=== PATIENT | male | born 1980 | race American Indian/Alaskan Native ===

== ENCOUNTER 2016-08-11 08:39 | Emergency (ER) | payer OTHER ==
[2016-08-11 08:44] VITALS: BP 128/85; PULSE 78; TEMP 97.6; BMI 23.7
[2016-08-11] MEDS ORDERED: IBUPROFEN 600 MG TABLET (FP) PO ONE ×2 (08:58→09:06)
--- NOTE | 2016-08-11 08:58 | PDOC ---
History of Present Illness <Jacqueline Jackson - Last Filed: 08/11/16 09:25> - General History Source: Patient Exam Limitations: No Limitations - History of Present Illness Initial Comments: 08/11/16 09:20 The patient is a 36 year old male, with a significant past medical history of kidney stones, who presents to the emergency department complaining of pain to his penile tip for approximately 5 days. The patient reports he engaged in sexual intercourse prior to the onset of his pain. He states the pain then came out of nowhere. The patient denies any history of STDs or a partner with a history of STDs. He describes the pain as achy in nature. The patient reports associated dysuria, but denies any discharge, testicular pain, back pain , frequency, urgency, or hematuria. The patient reports this pain is different from when hes had kidney stones in the past. The patient reports associated nausea, but denies vomiting, diarrhea, or constipation. The patient denies any fever, chills, cough, headache, or dizziness. The patient denies any recent travel or sick contacts. Allergies: Venom-honey bee, NKDA Past Surgical History: None reported. Family History: Kidney stones Social History: Non-smoker. Denies alcohol or drug use. PCP: Dr. Haines <Enedina Rivera - Last Filed: 08/11/16 09:31> - General Chief Complaint: Pain Stated Complaint: ABD PAIN Time Seen by Provider: 08/11/16 08:53 Past History - Past Medical History Other medical history: NONE - Psycho/Social/Smoking Cessation Hx Anxiety: No Suicidal Ideation: Yes Smoking History: Never smoked Have you smoked in the past 12 months: Yes Information on smoking cessation initiated: No Hx Alcohol Use: No Drug/Substance Use Hx: No Substance Use Type: None <Jacqueline Jackson - Last Filed: 08/11/16 09:25> <Enedina Rivera - Last Filed: 08/11/16 09:31> - Past Medical History Allergies/Adverse Reactions: Allergies Allergy/AdvReac Type Severity Reaction Status Date / Time venom-honey bee Allergy Verified 08/11/16 08:40 [bee venom (honey bee)] Home Medications: Ambulatory Orders NK [No Known Home Medication] 08/11/16 Review of Systems - Review of Systems Able to Perform ROS?: Yes Comments:: 08/11/16 09:21 GENERAL/CONSTITUTIONAL: No fever or chills. No weakness. HEAD, EYES, EARS, NOSE AND THROAT: No change in vision. No ear pain or discharge. No sore throat. CARDIOVASCULAR: No chest pain or shortness of breath. RESPIRATORY: No cough, wheezing, or hemoptysis. GASTROINTESTINAL: No nausea, vomiting, diarrhea or constipation. GENITOURINARY: +Penile tip pain, +dysuria. No frequency, or change in urination. MUSCULOSKELETAL: No joint or muscle swelling or pain. No neck or back pain. SKIN: No rash NEUROLOGIC: No headache, vertigo, loss of consciousness, or change in strength/ sensation. ENDOCRINE: No increased thirst. No abnormal weight change. HEMATOLOGIC/LYMPHATIC: No anemia, easy bleeding, or history of blood clots. ALLERGIC/IMMUNOLOGIC: No hives or skin allergy. <Enedina Rivera - Last Filed: 08/11/16 09:31> *Physical Exam - Vital Signs Last Vital Signs Temp Pulse Resp BP Pulse Ox 97.6 F 78 18 128/85 100 08/11/16 08:41 08/11/16 08:41 08/11/16 08:41 08/11/16 08:41 08/11/16 08:41 <Jacqueline Jackson - Last Filed: 08/11/16 09:25> - Vital Signs Last Vital Signs Temp Pulse Resp BP Pulse Ox 97.6 F 78 18 128/85 100 08/11/16 08:41 08/11/16 08:41 08/11/16 08:41 08/11/16 08:41 08/11/16 08:41 - Physical Exam Comments: 08/11/16 09:21 GENERAL: Awake, alert, and fully oriented, in no acute distress HEAD: No signs of trauma EYES: PERRLA, EOMI, sclera anicteric, conjunctiva clear ENT: Auricles normal inspection, hearing grossly normal, nares patent, oropharynx clear without exudates. Moist mucosa NECK: Normal ROM, supple, no lymphadenopathy, JVD, or masses LUNGS: Breath sounds equal, clear to auscultation bilaterally. No wheezes, and no crackles HEART: Regular rate and rhythm, normal S1 and S2, no murmurs, rubs or gallops ABDOMEN: Soft, nontender, normoactive bowel sounds. No guarding, no rebound. No masses EXTREMITIES: Normal range of motion, no edema. No clubbing or cyanosis. No cords, erythema, or tenderness NEUROLOGICAL: Cranial nerves II through XII grossly intact. Normal speech, normal gait SKIN: Warm, Dry, normal turgor, no rashes or lesions noted. <Enedina Rivera - Last Filed: 08/11/16 09:31> ED Treatment Course - ADDITIONAL ORDERS Additional order review: Laboratory Results 08/11/16 08:55 Urine Color Ltyellow Urine Appearance Clear Urine pH 5.0 Ur Specific [place] 1.024 Urine Protein Negative Urine Glucose (UA) Negative Urine Ketones Negative Urine Blood Negative Urine Nitrite Negative Urine Bilirubin Negative Urine Urobilinogen Negative Ur Leukocyte Esterase Negative - Medications Given in the ED: ED Medications Discontinued Medications Generic Name Dose Route Start Last Admin Trade Name Freq PRN Reason Stop Dose Admin Ibuprofen 600 mg 08/11/16 08:58 08/11/16 09:07 Motrin - PO 08/11/16 08:59 600 mg ONCE ONE Administration <Enedina Rivera - Last Filed: 08/11/16 09:31> *DC/Admit/Observation/Transfer - Discharge Dispostion Admit: No <Jacqueline Jackson - Last Filed: 08/11/16 09:25> - Attestations Scribe Attestion: 08/11/16 09:21 Documentation prepared by Enedina Rivera, acting as durable medical equipment repairer for Jacqueline Jackson MD. <Enedina Rivera - Last Filed: 08/11/16 09:31> Diagnosis at time of Disposition: Penile pain - Discharge Dispostion Disposition: HOME Condition at time of disposition: Stable - Referrals Referrals: Park Haines MD [Primary Care Provider] - - Patient Instructions Printed Discharge Instructions: DI for Dysuria -- Adult
[2016-08-11 09:08] LABS: URINE APPEARANCE CLEAR; URINE BILIRUBIN NEGATIVE (NEGATIVE); URINE BLOOD NEGATIVE (NEGATIVE); URINE COLOR LTYELLOW; URINE GLUCOSE (UA) NEGATIVE (NEGATIVE); URINE KETONE NEGATIVE (NEGATIVE); URINE LEUK ESTERASE NEGATIVE (NEGATIVE); URINE NITRITE NEGATIVE (NEGATIVE); URINE PROTEIN NEGATIVE (NEGATIVE); URINE UROBILINOGEN NEGATIVE E.U./dl (0.2-1.0)
[2016-08-11] MEDS ORDERED: ONDANSETRON *ODT* 4 MG TABLET SL ONE (09:31)
[2016-08-11] MEDS ORDERED: ONDANSETRON *ODT* 4 MG TABLET ONE (09:31)
== END 2016-08-11 10:05 | disposition home or self-care (01) ==
LOC: JER 08:39
DX: N48.89 Other specified disorders of penis (principal)
CPT/HCPCS: 81003; 99281-25

== ENCOUNTER 2024-07-21 13:55 | Inpatient (IN) | payer OTHER ==
[2024-07-21] MEDS ORDERED: ACETAMINOPHEN 1000 MG/100 ML BAG IVPB PRN (15:33)
[2024-07-21] MEDS ORDERED: KETOROLAC TROMETHAMINE 30 MG/1 ML VIAL IVPUSH PRN (15:33)
[2024-07-21] MEDS ORDERED: CEFTRIAXONE 1 GM in DEXTROSE 5%-WATER - 50 ML IVPB SCH (15:45)
[2024-07-21] MEDS ORDERED: PANTOPRAZOLE SODIUM 40 MG VIAL IVPUSH SCH (15:45)
[2024-07-21] MEDS ORDERED: ACETAMINOPHEN INJECTION 100 ML ONE (16:54)
[2024-07-21] MEDS: SODIUM CHLORIDE 0.9% 500 ML INFUS.BAG IV ONE ×2 (16:55→17:04)
[2024-07-21] MEDS: ACETAMINOPHEN 1000 MG/100 ML BAG IVPB ONE (17:04)
[2024-07-21 17:07] LABS: BASO % 0.2 % (0-2.0); EOS % 7.5 % (0-4.5); HEMATOCRIT 42.4 % (35.4-49); HEMOGLOBIN 13.8 GM/dL (11.7-16.9); LYMPH % 13.3 % (8-40); MCH 28.6 pg (25.7-33.7); MCHC 32.5 g/dl (32.0-35.9); MEAN CELL VOLUME 87.9 fl (80-96); MEAN PLT VOLUME 7.3 fl (7.5-11.1); PLATELET COUNT 210 10^3/uL (134-434); RBC 4.83 M/mm3 (4.00-5.60); RDW 13.7 % (11.9-15.9); WHITE BLOOD COUNT 11.7 K/mm3 (4.0-10.0)
[2024-07-21 17:15] LABS: INR 1.13 (0.83-1.09); PROTHROMBIN TIME (PATIENT) 12.3 SEC (9.7-13.0)
[2024-07-21 17:18] LABS: ACTIVATED PTT 29.7 SECONDS (25.2-36.5)
[2024-07-21 17:31] LABS: POTASSIUM 3.8 mmol/L (3.5-5.1)
[2024-07-21 17:33] LABS: ALBUMIN 3.3 g/dl (3.4-5.0); BLOOD UREA NITROGEN 8.6 mg/dL (7-18); CALCIUM 9.7 mg/dL (8.5-10.1); MAGNESIUM 2.2 mg/dL (1.8-2.4)
[2024-07-21 17:36] LABS: CREATININE 1.1 mg/dL (0.55-1.3)
[2024-07-21 17:38] LABS: BILIRUBIN,TOTAL 0.4 mg/dL (0.2-1); TOT PROT 7.2 g/dl (6.4-8.2)
[2024-07-21 18:02] VITALS: BMI 25.0
[2024-07-21 18:16] LABS: ERYTHROCYTE SEDIMENTATION RATE 32 mm/hr (0-10)
[2024-07-21 18:22] LABS: HIV INTERPRETATION NEGATIVE (NEGATIVE)
[2024-07-21] MEDS: DEXTROSE 5%-NORMAL SALINE 1,000 ML IV SCH (18:34)
[2024-07-21] MEDS: SODIUM CHLORIDE 1,000 ML IV SCH (20:08)
[2024-07-21] MEDS: FAMOTIDINE 20 MG/50 ML IVPB 20 MG/50 ML MG IVPB SCH (21:53)
[2024-07-23 09:01] LABS: BASO % 0.3 % (0-2.0); EOS % 7.8 % (0-4.5); HEMATOCRIT 42.2 % (35.4-49); MCH 29.5 pg (25.7-33.7); MCHC 33.1 g/dl (32.0-35.9); MEAN PLT VOLUME 7.2 fl (7.5-11.1); MONO % 7.7 % (3.8-10.2); NEUT % 73.2 % (42.8-82.8); PLATELET COUNT 159 10^3/uL (134-434); RBC 4.74 M/mm3 (4.00-5.60); RDW 13.6 % (11.9-15.9); WHITE BLOOD COUNT 9.6 K/mm3 (4.0-10.0)
[2024-07-23 09:26] LABS: POTASSIUM 3.6 mmol/L (3.5-5.1)
[2024-07-23 09:28] LABS: BLOOD UREA NITROGEN 4.2 mg/dL (7-18); CALCIUM 9.6 mg/dL (8.5-10.1)
[2024-07-23 09:29] LABS: MAGNESIUM 2.2 mg/dL (1.8-2.4)
[2024-07-23 09:32] LABS: CREATININE 1.2 mg/dL (0.55-1.3); PHOSPHOROUS 2.4 mg/dL (2.5-4.9)
[2024-07-23] MEDS: BISACODYL 5 MG TABLET.DR (FP) PO ONE (16:47)
[2024-07-23] MEDS: PEG 3350/NA SULF BICARB CL/KCL 4000 ML SOLN.RECON PO ONE (18:07)
[2024-07-24 09:13] LABS: BASO % 0.3 % (0-2.0); EOS % 9.3 % (0-4.5); HEMOGLOBIN 13.3 GM/dL (11.7-16.9); LYMPH % 13.6 % (8-40); MCH 29.8 pg (25.7-33.7); MCHC 34.1 g/dl (32.0-35.9); MEAN CELL VOLUME 87.4 fl (80-96); MEAN PLT VOLUME 7.5 fl (7.5-11.1); MONO % 8.4 % (3.8-10.2); NEUT % 68.4 % (42.8-82.8); PLATELET COUNT 121 10^3/uL (134-434); RBC 4.47 M/mm3 (4.00-5.60); RDW 13.4 % (11.9-15.9); WHITE BLOOD COUNT 7.4 K/mm3 (4.0-10.0)
[2024-07-24 09:22] LABS: INR 1.22 (0.83-1.09); PROTHROMBIN TIME (PATIENT) 13.4 SEC (9.7-13.0)
[2024-07-24 09:35] LABS: POTASSIUM 3.6 mmol/L (3.5-5.1)
[2024-07-24 09:43] LABS: CALCIUM 9.2 mg/dL (8.5-10.1)
[2024-07-24 09:44] LABS: ALBUMIN 2.8 g/dl (3.4-5.0); BLOOD UREA NITROGEN 4.2 mg/dL (7-18)
[2024-07-24 09:47] LABS: CREATININE 1.1 mg/dL (0.55-1.3)
[2024-07-24 09:48] LABS: BILIRUBIN,TOTAL 0.5 mg/dL (0.2-1)
[2024-07-24 09:49] LABS: TOT PROT 6.4 g/dl (6.4-8.2)
[2024-07-24] MEDS: MESALAMINE 800 MG TABLET.DR PO SCH (11:42)
[2024-07-24] MEDS: methylPREDNISolone NA SUCC 40 MG/1 ML VIAL IVPUSH SCH (11:42)
[2024-07-24 14:22] VITALS: RESP 18
[2024-07-24] MEDS: VANCOMYCIN HCL 125 MG CAPSULE (RESTRICTED TO ID ONLY) PO SCH (17:24)
[2024-07-24] MEDS ORDERED: VANCOMYCIN ORAL SOLUTION 125 MG/2.5 ML PO SCH (18:00)
[2024-07-24] MEDS ORDERED: POTASSIUM CHLORIDE ORAL LIQUID 20 MEQ/15 ML PO ONE (18:55)
[2024-07-24] MEDS: BANATROL PLUS POWDER PACKET PO SCH (21:54)
[2024-07-24] MEDS: POTASSIUM CHLORIDE ORAL LIQUID 20 MEQ/15 ML PO ONE (22:30)
[2024-07-25 08:34] LABS: ALBUMIN 2.8 g/dl (3.4-5.0); BILIRUBIN,TOTAL 0.4 mg/dL (0.2-1); BLOOD UREA NITROGEN 6.9 mg/dL (7-18); CALCIUM 9.3 mg/dL (8.5-10.1); POTASSIUM 4.1 mmol/L (3.5-5.1); TOT PROT 6.6 g/dl (6.4-8.2)
[2024-07-25] MEDS: CALCIUM 250MG/VIT-D 125 UNITS 1 COMBO TABLET PO SCH (09:20)
[2024-07-25 11:47] LABS: HEMATOCRIT 38.1 % (35.4-49); HEMOGLOBIN 12.7 GM/dL (11.7-16.9); MCH 29.2 pg (25.7-33.7); MCHC 33.4 g/dl (32.0-35.9); MEAN CELL VOLUME 87.4 fl (80-96); MEAN PLT VOLUME 7.9 fl (7.5-11.1); PLATELET COUNT 130 10^3/uL (134-434); RBC 4.36 M/mm3 (4.00-5.60); RDW 13.5 % (11.9-15.9); WHITE BLOOD COUNT 11.2 K/mm3 (4.0-10.0)
[2024-07-25 12:41] LABS: ANISOCYTOSIS 0; MACROCYTOSIS 0
[2024-07-26 08:35] LABS: BASO % 0.1 % (0-2.0); HEMATOCRIT 40.6 % (35.4-49); HEMOGLOBIN 13.4 GM/dL (11.7-16.9); LYMPH % 6.6 % (8-40); MCH 29.1 pg (25.7-33.7); MCHC 32.9 g/dl (32.0-35.9); MEAN CELL VOLUME 88.4 fl (80-96); MEAN PLT VOLUME 7.6 fl (7.5-11.1); MONO % 3.4 % (3.8-10.2); NEUT % 89.9 % (42.8-82.8); PLATELET COUNT 170 10^3/uL (134-434); RDW 13.8 % (11.9-15.9); WHITE BLOOD COUNT 13.5 K/mm3 (4.0-10.0)
[2024-07-26 08:51] VITALS: BP 107/79; PULSE 114; TEMP 98.1
[2024-07-26 08:59] LABS: POTASSIUM 4.2 mmol/L (3.5-5.1)
[2024-07-26 09:08] LABS: CALCIUM 9.5 mg/dL (8.5-10.1)
[2024-07-26 09:09] LABS: BLOOD UREA NITROGEN 12.5 mg/dL (7-18)
[2024-07-26 09:14] LABS: BILIRUBIN,TOTAL 0.5 mg/dL (0.2-1)
== END 2024-07-26 10:30 | disposition home or self-care (01) | DRG 372 ==
LOC: JER 13:55 → JERBED 15:49 → J6S 17:35
PROVIDERS: ADMIT Family Medicine; ATTEND Family Medicine
PROC: 0DBK8ZX Excision of Ascending Colon, Via Natural or Artificial Opening Endoscopic, Diagnostic (ICD-10-PCS; principal; 2024-07-24 09:45)
DX: A04.72 Enterocolitis due to Clostridium difficile, not specified as recurrent (principal); K63.3 Ulcer of intestine; K92.2 Gastrointestinal hemorrhage, unspecified; K64.8 Other hemorrhoids
CPT/HCPCS: 0241U-QW; 36415; 80048; 80053; 82272; 82542; 82962; 83735; 84100; 85025; 85610; 85651; 85730; 86140; 86480; 86682; 86704; 86803; 86850; 86900; 86901; 87045; 87046; 87205; 87209; 87324; 87340; 87389; 87449; 87493; 87517; 88305-TC; 93005; 93010; 99285-25; J0131

== ENCOUNTER 2025-01-12 06:05 | Day surgery (SDC) | payer OTHER ==
[2025-01-09 14:45] VITALS: BMI 25.7
[2025-01-12] MEDS ORDERED: KETOROLAC TROMETHAMINE 30 MG/1 ML VIAL ONE (09:25)
[2025-01-12 09:50] VITALS: TEMP 97.4
[2025-01-12 10:07] VITALS: RESP 22
[2025-01-12 10:35] VITALS: BP 121/70; PULSE 68
== END 2025-01-12 11:15 | disposition home or self-care (01) ==
LOC: JASU-ENDO 06:05
PROVIDERS: ATTEND Internal Medicine Gastroenterology
PROC: 0DBN8ZX Excision of Sigmoid Colon, Via Natural or Artificial Opening Endoscopic, Diagnostic (ICD-10-PCS; 2025-01-12)
PROC: 0DBP8ZX Excision of Rectum, Via Natural or Artificial Opening Endoscopic, Diagnostic (ICD-10-PCS; principal; 2025-01-12 09:15)
DX: K52.9 Noninfective gastroenteritis and colitis, unspecified (principal); K62.89 Other specified diseases of anus and rectum; K64.8 Other hemorrhoids
CPT/HCPCS: 88305-TC

== ENCOUNTER 2025-02-03 15:42 | Inpatient (IN) | payer OTHER ==
[2025-02-03 16:55] LABS: MCHC 33.6 g/dl (32.3-36.5); MEAN CELL VOLUME 86.6 fl (79.0-92.2); MEAN PLT VOLUME 8.0 fl (9.4-12.4); RDW 12.6 % (12.1-15.9)
[2025-02-03] MEDS ORDERED: ACETAMINOPHEN INJECTION 100 ML ONE (16:56)
[2025-02-03 17:05] LABS: INR 1.17 (0.83-1.09); PROTHROMBIN TIME (PATIENT) 12.9 SEC (9.7-13.0)
[2025-02-03] MEDS: ACETAMINOPHEN 1000 MG/100 ML BAG IVPB ONE (17:05)
[2025-02-03 17:33] LABS: GLUCOSE,RANDOM 97.0 mg/dL (74-106); TOT PROT 6.8 g/dl (6.4-8.2)
[2025-02-03 17:34] LABS: CO2 25.0 mmol/L (21-32)
[2025-02-03 17:36] LABS: ALK PHOS 100.0 U/L (40-150)
[2025-02-03 17:39] LABS: CREATININE 1.13 mg/dL (0.55-1.3); SGOT/AST 16.0 U/L (5-34); SGPT/ALT 15.0 U/L (0-55)
[2025-02-03 20:05] LABS: URINE APPEARANCE CLEAR; URINE BILIRUBIN NEGATIVE (NEGATIVE); URINE COLOR YELLOW; URINE GLUCOSE (UA) NEGATIVE (NEGATIVE); URINE KETONE NEGATIVE (NEGATIVE); URINE LEUK ESTERASE NEGATIVE (NEGATIVE); URINE NITRITE NEGATIVE (NEGATIVE); URINE PROTEIN NEGATIVE (NEGATIVE); URINE UROBILINOGEN 0.2 mg/dL (0.2-1.0)
[2025-02-03 20:45] LABS: COCAINE, UR NEGATIVE (NEGATIVE)
[2025-02-03 20:46] LABS: METHADONE, UR NEGATIVE (NEGATIVE); OPIATES, URI NEGATIVE (NEGATIVE); PHENCYCLIDINE,URINE NEGATIVE (NEGATIVE); URINE AMPHETAMINES NEGATIVE (NEGATIVE); URINE BARBITURATES NEGATIVE (NEGATIVE); URINE BENZODIAZEPINES NEGATIVE (NEGATIVE)
[2025-02-03] MEDS ORDERED: DILTIAZEM RC SCH (22:00)
[2025-02-03] MEDS: HYDROCORTISONE ACETATE 25 MG/SUPP.RECT RC SCH (22:04)
[2025-02-03] MEDS ORDERED: LACTATED RINGERS SOLUTION 1,000 ML/1,000 ML INFUS.BAG IV SCH (22:15)
[2025-02-03] MEDS: LACTATED RINGERS SOLUTION 1,000 ML/1,000 ML INFUS.BAG IV SCH (22:47)
[2025-02-03] MEDS: ACETAMINOPHEN 1000 MG/100 ML BAG IVPB PRN (22:48)
[2025-02-04 01:00] VITALS: BMI 23.1
[2025-02-04] MEDS: MESALAMINE 800 MG TABLET.DR PO SCH (06:37)
[2025-02-04 08:47] LABS: MCHC 32.4 g/dl (32.3-36.5); MEAN CELL VOLUME 88.8 fl (79.0-92.2); MEAN PLT VOLUME 8.6 fl (9.4-12.4); RDW 12.8 % (12.1-15.9)
[2025-02-04] MEDS: predniSONE 20 MG TABLET (UD) PO SCH (09:11)
[2025-02-04 09:44] LABS: TOT PROT 7.0 g/dl (6.4-8.2)
[2025-02-04 09:45] LABS: CO2 29.0 mmol/L (21-32)
[2025-02-04 09:47] LABS: ALK PHOS 100.0 U/L (40-150); GLUCOSE,RANDOM 98.0 mg/dL (74-106)
[2025-02-04 09:49] LABS: SGPT/ALT 17.0 U/L (0-55)
[2025-02-04 09:50] LABS: CREATININE 1.18 mg/dL (0.55-1.3); SGOT/AST 14.0 U/L (5-34)
[2025-02-04] MEDS ORDERED: MESALAMINE 800 MG TABLET.DR PO SCH (10:00)
[2025-02-04] MEDS: VANCOMYCIN HCL 125 MG CAPSULE (RESTRICTED TO ID ONLY) PO SCH (17:48)
[2025-02-05 07:36] LABS: GLUCOSE,RANDOM 83.0 mg/dL (74-106); TOT PROT 6.0 g/dl (6.4-8.2)
[2025-02-05 07:37] LABS: CO2 30.0 mmol/L (21-32)
[2025-02-05 07:38] LABS: ABSOLUTE IMMATURE GRANULOCYTES 0.24 x10^3/uL (0.0-0.031); BASOPHILS # 0.04 x10^3/uL (0.01-0.08); EOSINOPHIL % 0.1 % (0.8-7.0); EOSINOPHILS # 0.01 x10^3/uL (0.04-0.54); MCHC 32.0 g/dl (32.3-36.5); MEAN CELL VOLUME 88.5 fl (79.0-92.2); MEAN PLT VOLUME 8.2 fl (9.4-12.4); MONOCYTE # 0.94 x10^3/uL (0.30-0.82); MONOCYTE % 11.4 % (5.3-12.2); RDW 12.9 % (12.1-15.9)
[2025-02-05 07:39] LABS: ALK PHOS 82.0 U/L (40-150)
[2025-02-05 07:41] LABS: SGOT/AST 12.0 U/L (5-34); SGPT/ALT 12.0 U/L (0-55)
[2025-02-05 07:42] LABS: CREATININE 1.04 mg/dL (0.55-1.3)
[2025-02-05 17:14] LABS: IRON SERUM 96.0 ug/dL (50-175)
[2025-02-05] MEDS: POTASSIUM CHLORIDE ORAL LIQUID 20 MEQ/15 ML PO ONE (18:08)
[2025-02-06 08:25] LABS: IRON SERUM 54 ug/dL (50-175)
[2025-02-06] MEDS: MESALAMINE 800 MG TABLET.DR PO SCH (09:16)
[2025-02-06] MEDS: traZODone HCL 50 MG TABLET (FP) PO SCH (22:55)
[2025-02-07 07:05] VITALS: RESP 17; TEMP 97.5
[2025-02-07 09:04] VITALS: BP 120/89; PULSE 108
[2025-02-07 09:06] LABS: ABSOLUTE IMMATURE GRANULOCYTES 0.19 x10^3/uL (0.0-0.031); BASOPHILS # 0.04 x10^3/uL (0.01-0.08); EOSINOPHIL % 0.4 % (0.8-7.0); EOSINOPHILS # 0.04 x10^3/uL (0.04-0.54); MCHC 32.3 g/dl (32.3-36.5); MEAN CELL VOLUME 87.3 fl (79.0-92.2); MEAN PLT VOLUME 8.3 fl (9.4-12.4); MONOCYTE # 0.72 x10^3/uL (0.30-0.82); MONOCYTE % 7.2 % (5.3-12.2); RDW 13.1 % (12.1-15.9)
[2025-02-07] MEDS: ENOXAPARIN NA (PORCINE) 40 MG/0.4 ML DISP.SYRIN SQ SCH (09:32)
[2025-02-07 09:35] LABS: GLUCOSE,RANDOM 132.0 mg/dL (74-106)
[2025-02-07 09:36] LABS: TOT PROT 6.9 g/dl (6.4-8.2)
[2025-02-07 09:37] LABS: CO2 22.0 mmol/L (21-32)
[2025-02-07 09:38] LABS: ALK PHOS 92.0 U/L (40-150)
[2025-02-07 09:41] LABS: CREATININE 1.11 mg/dL (0.55-1.3); SGOT/AST 17.0 U/L (5-34); SGPT/ALT 28.0 U/L (0-55)
== END 2025-02-07 12:45 | disposition home or self-care (01) | DRG 387 ==
LOC: JER 15:42 → JERBED 16:10 → J7W 21:24 → OBSVTOIN 02-06 10:10
PROVIDERS: ADMIT Family Medicine; ATTEND Family Medicine
DX: K51.90 Ulcerative colitis, unspecified, without complications (principal); K62.89 Other specified diseases of anus and rectum; R63.4 Abnormal weight loss; Z68.23 Body mass index [BMI] 23.0-23.9, adult; R63.0 Anorexia; E86.0 Dehydration
CPT/HCPCS: 36415; 72197-TC; 74181-TC; 80053; 80307; 81003; 82150; 82728; 83540; 83550; 83690; 83735; 84100; 84550; 85025; 85610; 85651; 86140; 86632; 86850; 86900; 86901; 87045; 87046; 87209; 87324; 87449; 87493; 93005; 93010; 99285-25; G0378